=== PATIENT | female | born 1975 | race Caucasian/White ===

== ENCOUNTER 2020-10-03 15:04 | Emergency (ER) | payer OTHER ==
[~2020-10-03] VITALS: Ht 160 cm; Wt 47.6 kg
[2020-10-03 15:22] VITALS: BP 120/76
[2020-10-03] MEDS ORDERED: ZOFRAN IV STA (15:25)
[2020-10-03 15:28] LABS: BASOPHIL % 0.1 % (0.0-0.2); LYMPHOCYTES # 1.51 10^3/uL1 (1.0-4.8); MEAN CORP HGB 38.3 pg (26-34); MONOCYTES # 0.8 10^3/uL (0.3-0.8); MONOCYTES % 9.9 % (5.0-12.0); NEUTROPHIL # 5.3 10^3/uL (1.8-7.7); NEUTROPHILS % 69.7 % (41.0-85.0); PLATELET COUNT 184 10^3/uL (150-400); RED CELL DISTRIBUTION WIDTH 14.1 % (11.5-14.5)
[2020-10-03] MEDS ORDERED: PEPCID IV STA (15:28)
[2020-10-03] MEDS ORDERED: NS 1000ML 1,000 ML IV ONE (15:30)
[2020-10-03 15:33] VITALS: BP 96/73
[2020-10-03] MEDS ORDERED: PEPCID IV ONE (15:36)
[2020-10-03] MEDS ORDERED: ZOFRAN ONE (15:36)
[2020-10-03] MEDS ORDERED: NS 1000ML 1,000 ML ONE (15:36)
--- NOTE | 2020-10-03 15:44 | PCM.EKG ---
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
[2020-10-03 15:45] LABS: CALCIUM 9.6 mg/dL (8.4-10.5); CARBON DIOXIDE 34.3 mmol/L (20.0-32)
[2020-10-03 16:30] VITALS: BP 109/65
--- NOTE | 2020-10-03 17:23 | ER.PDOC ---
General Chief Complaint: Abdomen Pain Stated Complaint: FEMALE ,ABD PAIN,N/V Time seen by MD: 17:22 Source: patient Exam Limitations: no limitations History of Present Illness Timing/Duration: 1-3 hours Severity/Quality: severe, cramping Radiation: back Associated Symptoms: back pain, heartburn, nausea/vomiting Exacerbated by: movements, deep breaths Relieved By: remaining still Vital Signs First Vital Signs Date Time Temp Pulse Resp B/P (MAP) Pulse Ox O2 Delivery O2 Flow Rate FiO2 10/03/20 15:22 98.5 100 18 10/03/20 15:22 97 10/03/20 15:33 96/73 (81) Room Air Last Vital Signs Date Time Temp Pulse Resp B/P (MAP) Pulse Ox O2 Delivery O2 Flow Rate FiO2 10/03/20 15:33 98.5 100 18 96/73 (81) 97 Room Air Past Medical History Medical History: other Surgical History: appendectomy Social History Alcohol Use: none Drug Use: none, marijuana Reviewed Nursing Reviewed: Vital Signs, Abn. Noted All Other Systems: Reviewed and Negative Physical Exam General Appearance: No Apparent Distress, WD/WN HEENT: PERRL/EOMI, Normal ENT Inspection, TMs Normal, Pharynx Normal Neck: Non-Tender, Full Range of Motion, Supple, Normal Inspection Respiratory: chest non-tender, lungs clear, normal breath sounds, no respiratory distress, no accessory muscle use Cardiovascular: Normal Peripheral Pulses, Regular Rate, Rhythm, No Edema, No Gallop, No JVD, No Murmur Gastrointestinal: Tenderness Back: Normal Inspection, No CVA Tenderness, No Vertebral Tenderness Extremities: Normal Range of Motion, Non-Tender, Normal Inspection, No Pedal Edema, No Calf Tenderness, Normal Capillary Refill, Pelvis Stable Neurologic/Psychiatric: internal 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 (10/03/20 15:20) Urinalysis (10/03/20 15:20) Drug Scrn Med W Confirmation (10/03/20 15:25) Ekg-Routine (10/03/20 15:25) Troponin I (10/03/20 15:25) Creatine Kinase Mb (10/03/20 15:25) Creatine Kinase (10/03/20 15:25) 0.9 % Sodium Chloride (Ns 1000ml) (10/03/20 15:30) Ondansetron Hcl/Pf (Zofran) (10/03/20 15:25) Us Gallbladder (10/03/20 15:25) Famotidine/Pf (Pepcid) (10/03/20 15:28) 0.9 % Sodium Chloride (Ns 1000ml) (10/03/20 15:36) Ondansetron Hcl/Pf (Zofran) (10/03/20 15:36) Famotidine/Pf (Pepcid) (10/03/20 15:36) Vital Signs Date Time Temp Pulse Resp B/P (MAP) Pulse Ox O2 Delivery O2 Flow Rate FiO2 10/03/20 15:33 98.5 100 18 96/73 (81) 97 Room Air 10/03/20 15:22 98.5 100 18 97 10/03/20 15:22 98.5 100 18 Administered Medications Medications (Trade) Dose Ordered Sig/Darin Route PRN Reason Start Time Stop Time Status Last Admin Dose Admin Famotidine (Pepcid) 20 mg STAT STAT IV 10/03/20 15:28 10/03/20 15:31 DC 10/03/20 15:42 20 MG Ondansetron HCl (Zofran) 4 mg STAT STAT IV 10/03/20 15:25 10/03/20 15:28 DC 10/03/20 15:42 4 MG Sodium Chloride 1,000 ml @ 0 mls/hr Q0M ONCE IV 10/03/20 15:30 10/03/20 15:31 DC 10/03/20 15:42 1,000 MLS/HR Laboratory Tests Test 10/03/20 15:20 White Blood Count 7.6 10^3/uL (4.5-11.0) Red Blood Count 5.15 10^6/uL (4.00-5.20) Hemoglobin 19.7 g/dL (12.0-15.0) H Hematocrit 56.6 % (36.0-46.0) H Mean Corpuscular Volume 109.9 fL (78-100) H Mean Corpuscular Hemoglobin 38.3 pg (26-34) H Mean Corpuscular Hemoglobin Concent 34.8 g/dL (33-36.5) Red Cell Distribution Width 14.1 % (11.5-14.5) Platelet Count 184 10^3/uL (150-400) Mean Platelet Volume 9.8 fL (7.8-11.0) Neutrophils (%) (Auto) 69.7 % (41.0-85.0) Lymphocytes (%) (Auto) 20.0 % (24.0-44.0) L Monocytes (%) (Auto) 9.9 % (5.0-12.0) Neutrophils # (Auto) 5.3 10^3/uL (1.8-7.7) Lymphocytes # (Auto) 1.51 10^3/uL1 (1.0-4.8) Monocytes # (Auto) 0.8 10^3/uL (0.3-0.8) Absolute Immature Granulocyte (auto 0.02 10^3 u/L (0-2) Absolute Eosinophils (auto) 0.0 10^3/uL (0.0-0.2) Immature Granulocytes % 0.30 % (0.00-0.50) Eosinophils % 0.0 % (0.0-5.0) Basophils % 0.1 % (0.0-0.2) Basophils # 0.0 10^3/uL (0.0-0.1) Prothrombin Time 11.0 SEC (9.6-12.0) Prothrombin Time INR (Non-Therap) 1.0 Activated Partial Thromboplast Time 23.1 SEC (24.67-30.72) Sodium Level 140 mmol/L (132-145) Potassium Level 3.5 mmol/L (3.6-5.2) L Chloride Level 99.0 mmol/L (96-109) Carbon Dioxide Level 34.3 mmol/L (20.0-32) H Anion Gap 10.2 Blood Urea Nitrogen 7 mg/dL (7-18) Creatinine 0.89 mg/dL (0.59-1.40) Estimated GFR () 83.0 (>/=60) Est GFR (CKD-EPI)(Non-Afr [place]) 68.6 (>/=60) BUN/Creatinine Ratio 7.0 Glucose Level 117 mg/dL (70-110) H Calcium Level 9.6 mg/dL (8.4-10.5) Total Bilirubin 1.9 mg/dL (0.2-1.0) H Aspartate Amino Transferase (AST) 29 U/L (0-35) Alanine Aminotransferase (ALT) 20 U/L (12-78) Alkaline Phosphatase 137 U/L (50-136) H Total Creatine Kinase 68 U/L (26-192) Creatine Kinase MB < 0.5 ng/mL (0.5-3.6) L Troponin I < 0.02 ng/mL (0.00-0.05) Total Protein 8.1 g/dL (6.4-8.2) Albumin 4.1 g/dL (3.4-5.0) Globulin 4.0 Albumin/Globulin Ratio 1.025 Amylase Level 40 U/L (25-115) Lipase 48 U/L (114-286) L Helicobacter pylori Screen NEGATIVE (NEGATIVE) Progress Progress phlebotomy offered, Patient [place] out of town and will follow up with primary care for possible phlebotomy ER DEPART Departure Time of Disposition: 17:33 Disposition: 01 HOME / SELF CARE / HOMELESS Impression: Primary Impression: [place] Additional Impression: Polycythemia Condition: Improved Referrals: PCP,UNKNOWN (PCP) PRIMARY CARE PROVIDER Duration or Time Spent with Pa: 12m Return to Work/School Can a patient return to work?: No Can a patient return to school: No Problem Qualifiers LONG PEREZ MD Oct 03, 2020 17:23
--- NOTE | 2020-10-03 17:29 | DIREP ---
PROCEDURE:US ABDOMEN LIMITED (SINGLE ORGAN - QUAD) COMPARISON:None. INDICATIONS:ruq/epigastric pain X2D, N/V X1D TECHNIQUE:High resolution sonographic examination was performed of the abdomen. FINDINGS: PANCREAS:Visualized portions of the pancreatic head and body appear unremarkable. The pancreatic tail is partially obscured by bowel gas shadowing. LIVER:Mildly enlarged. Normal hepatic parenchymal architecture. No focal hepatic lesion is identified. GALLBLADDER:Gallbladder sludge with likely non shadowing stone seen on image 43/60. No evidence for gallbladder wall thickening or pericholecystic fluid. Negative sonographic Bosch's sign. BILIARY:There is no biliary ductal dilatation. RIGHT KIDNEY:Normal. No hydronephrosis. OTHER:Negative. No ascites is identified. CBD:0.3 cm GALLBLADDER WALL: 0.2 cm LIVER: 16.8 cm in length. RIGHT KIDNEY: 9.6 x 4.1 x 4.5 cm CONCLUSION:Cholelithiasis, without evidence of cholecystitis. Dictated by: RORO Physician on 10/03/2020 at 04:59 PM
[2020-10-03 17:45] VITALS: BP 112/61
== END 2020-10-03 17:45 | disposition home or self-care (01) ==
LOC: ER 15:04
DX: K80.20 Calculus of gallbladder without cholecystitis without obstruction (principal); D75.1 Secondary polycythemia; R79.1 Abnormal coagulation profile; Z79.899 Other long term (current) drug therapy
CPT/HCPCS: 36415; 76705; 80053; 82150; 82550; 82553; 83690; 84484; 85025; 85610; 85730; 86677; 93005; 96361; 96374; 96375; 99285; J2405; J3490; J7030